=== PATIENT | female | born 1980 | race Two or more races ===

== ENCOUNTER 2016-12-13 14:02 | Emergency (ER) | payer MEDICAID, OTHER ==
[~2016-12-13] VITALS: Ht 149.9 cm; Wt 41.3 kg
[2016-12-13 14:10] VITALS: BP 115/70
[2016-12-13 14:49] LABS: Basophils # (auto) 0 uL; Basophils % (auto) 0.4 % (0.0-2.0); CONDITION Y; DEFINITIVE SEE PRINTOUT; Eosinophils # (auto) 0 uL; Eosinophils % (auto) 0.3 % (0.0-7.0); Hematocrit 36.1 % (36.0-46.0); Hemoglobin 11.6 g/dL (12.2-16.2); Lymphocytes # (auto) 1.3 uL; Lymphocytes % (auto) 17.6 % (10.0-50.0); Mean Corpuscular Hemoglobin 21.7 pg (28.0-32.0); Mean Corpuscular Hgb Conc. 32.3 g/dL (32.0-36.0); Mean Corpuscular Volume 67.4 fL (80.0-100.0); Mean Platelet Volume 12.8 fL (7.4-10.4); Monocytes # (auto) 0.9 uL; Monocytes % (auto) 11.9 % (0.0-12.0); Neutrophils # (auto) 5.1 uL; Neutrophils % (auto) 69.8 % (37.0-80.0); Platelet Count (auto) 201 10^3/uL (140-450); Red Cell Distribution Width 16.5 % (11.6-16.0); SUSPECT SEE PRINTOUT; White Blood Cell 7.4 10^3/uL (4.4-10.8)
[2016-12-13 15:03] LABS: Alkaline Phosphatase 30 U/L (45-117); Anion Gap 7 (5-15); Aspartate Aminotransferase 10 U/L (15-37); BUN/Creatinine Ratio 12.5; Bilirubin, Total 0.8 mg/dL (0.2-1.0); Blood Urea Nitrogen 10 mg/dL (7-18); Calcium 8.9 mg/dL (8.5-10.1); Carbon Dioxide 24 mmol/L (21-32); Chloride 108 mmol/L (98-107); GFR African American 104 mL/min; GFR Non-African American 86 mL/min; Glucose 90 mg/dL (74-106); Magnesium 2.5 mg/dL (1.6-2.6); Potassium 3.8 mmol/L (3.5-5.1); Sodium 139 mmol/L (136-145); Total Protein 8.1 g/dL (6.4-8.2)
== END 2016-12-13 17:43 | disposition home or self-care (01) ==
LOC: ER 14:02
DX: S40.022A Contusion of left upper arm, initial encounter (principal); X58.XXXA Exposure to other specified factors, initial encounter; Y93.89 Activity, other specified; Y92.89 Other specified places as the place of occurrence of the external cause; Y99.8 Other external cause status
CPT/HCPCS: 36415; 71020; 80053; 81025; 83735; 84484; 85025; 93005; 93971; 94761

== ENCOUNTER 2017-11-10 16:13 | Inpatient (IN) | payer MEDICAID ==
[~2017-11-10] VITALS: Ht 149.9 cm; Wt 42.0 kg
[2017-11-10] MEDS ORDERED: SODIUM CHLORIDE 0.9% 1,000 ML IVB ONE (16:54)
[2017-11-10 16:58] LABS: Basophils # (auto) 0 uL; Basophils % (auto) 0.5 % (0.0-2.0); Eosinophils # (auto) 0 uL; Eosinophils % (auto) 0.8 % (0.0-7.0); Hematocrit 34.1 % (36.0-46.0); Hemoglobin 10.9 g/dL (12.2-16.2); Lymphocytes % (auto) 17.7 % (10.0-50.0); Mean Corpuscular Hemoglobin 22.2 pg (28.0-32.0); Mean Corpuscular Hgb Conc. 32.1 g/dL (32.0-36.0); Mean Corpuscular Volume 69.1 fL (80.0-100.0); Monocytes # (auto) 0.7 uL; Monocytes % (auto) 13.6 % (0.0-12.0); Neutrophils # (auto) 3.7 uL; Neutrophils % (auto) 67.4 % (37.0-80.0); Nucleated Red Blood Cells % 0.2 %; Platelet Count (auto) 120 10^3/uL (140-450); Red Blood Cells 4.94 10^6/uL (4.0-5.20); Red Cell Distribution Width 17.3 % (11.8-14.3); White Blood Cell 5.5 10^3/uL (4.4-10.8)
[2017-11-10] MEDS ORDERED: KETOROLAC TROMETH 30 MG/ML 1ML VIAL IV ONE (17:00)
[2017-11-10 17:16] LABS: Albumin 4.1 g/dL (3.4-5.0); BUN/Creatinine Ratio 16.7; Bilirubin, Total 0.6 mg/dL (0.2-1.0); Calcium 8.9 mg/dL (8.5-10.1); Potassium 3.7 mmol/L (3.5-5.1); Total Protein 8.2 g/dL (6.4-8.2)
[2017-11-10 17:29] LABS: Magnesium 2.4 mg/dL (1.6-2.6)
[2017-11-10 17:45] LABS: Urine Bacteria FEW /hpf (None Seen); Urine Blood Negative /uL (Negative); Urine Specific Gravity 1.004 (1.001-1.035); Urine WBC <1 /hpf (0 - 5)
[2017-11-10] MEDS ORDERED: ONDANSETRON HCL 4 MG/2 ML VIAL IV ONE (21:00)
[2017-11-10] MEDS ORDERED: ONDANSETRON HCL 4 MG/2 ML VIAL IV PRN (21:00)
[2017-11-10] MEDS ORDERED: MORPHINE SULFATE 8mg/ml INJ SDV IV ONE (21:00)
[2017-11-10] MEDS ORDERED: DOCUSATE SOD 100 MG CAP PO PRN (21:00)
[2017-11-10] MEDS ORDERED: TEMAZEPAM 15 MG CAP PO PRN (21:00)
[2017-11-10] MEDS ORDERED: MORPHINE SULFATE 10 MG/ML INJ 1ML SDV IV PRN (21:00)
[2017-11-10] MEDS ORDERED: ACETAMINOPHEN 325 MG TAB PO PRN (21:00)
[2017-11-10] MEDS: SODIUM CHLORIDE 0.9% 1,000 ML IV SCH ×6 (21:04→22:38)
[2017-11-10] MEDS: FAMOTIDINE 20 MG TAB PO SCH (21:08)
[2017-11-10 22:30] VITALS: BP 121/65
[2017-11-10 22:40] VITALS: BP 121/65
[2017-11-10] MEDS ORDERED: IBUP100S11 PO (22:45)
[2017-11-11 05:00] VITALS: BP 117/64
[2017-11-11 07:09] LABS: Basophils # (auto) 0 uL; Eosinophils # (auto) 0 uL; Eosinophils % (auto) 1.5 % (0.0-7.0); Monocytes # (auto) 0.5 uL; Nucleated Red Blood Cells % 0.1 %
[2017-11-11 07:12] LABS: Basophils % (auto) 0.6 % (0.0-2.0); Hematocrit 30.5 % (36.0-46.0); Hemoglobin 9.9 g/dL (12.2-16.2); Lymphocytes # (auto) 0.7 uL; Lymphocytes % (auto) 24.8 % (10.0-50.0); Mean Corpuscular Hemoglobin 22.1 pg (28.0-32.0); Mean Corpuscular Hgb Conc. 32.3 g/dL (32.0-36.0); Mean Corpuscular Volume 68.5 fL (80.0-100.0); Monocytes % (auto) 17.6 % (0.0-12.0); Neutrophils # (auto) 1.7 uL; Neutrophils % (auto) 55.5 % (37.0-80.0); Platelet Count (auto) 81 10^3/uL (140-450); Red Blood Cells 4.45 10^6/uL (4.0-5.20); Red Cell Distribution Width 17.5 % (11.8-14.3)
[2017-11-11 07:29] LABS: Potassium 4.1 mmol/L (3.5-5.1)
[2017-11-11 07:36] LABS: Albumin 3.3 g/dL (3.4-5.0); BUN/Creatinine Ratio 16.7; Calcium 8.3 mg/dL (8.5-10.1); Total Protein 6.9 g/dL (6.4-8.2)
[2017-11-11 07:44] LABS: Bilirubin, Total 0.7 mg/dL (0.2-1.0)
[2017-11-11 09:00] VITALS: BP 96/56
[2017-11-11] MEDS: HYDROcodone-ACET 5/325MG TAB PO PRN ×2 (10:15→16:00)
[2017-11-11] MEDS: FAMOTIDINE 20 MG TAB PO SCH ×2 (11:03→21:43)
[2017-11-11] MEDS: ENOXAPARIN SOD 30 MG/0.3 ML SYRINGE SC SCH (11:04)
[2017-11-11] MEDS ORDERED: GASTROGRAFIN 120 ML SOL ONE (11:47)
[2017-11-11 12:27] VITALS: BP 107/54
[2017-11-11 12:38] LABS: INR 1.05 (0.9-1.15); Partial Thromboplastin Time 34.7 sec (23.78-33.04); Prothrombin Time 11.2 sec (9.27-12.13)
[2017-11-11 16:23] VITALS: BP 108/66
[2017-11-11] MEDS: SODIUM CHLORIDE 0.9% 1,000 ML IV SCH (20:58)
[2017-11-11 21:08] VITALS: BP 117/68
[2017-11-12 05:35] VITALS: BP 95/57
[2017-11-12] MEDS: FAMOTIDINE 20 MG TAB PO SCH (08:11)
[2017-11-12] MEDS: HYDROcodone-ACET 5/325MG TAB PO PRN (08:13)
[2017-11-12 09:00] VITALS: BP 116/60
[2017-11-12] MEDS ORDERED: IBUPROFEN 600 MG TAB PO PRN (10:00)
[2017-11-12] MEDS: ENOXAPARIN SOD 30 MG/0.3 ML SYRINGE SC SCH (10:00)
[2017-11-12 13:25] VITALS: BP 108/58
== END 2017-11-12 14:00 | disposition home or self-care (01) | DRG 247 ==
LOC: ER 16:13 → OVERFLOW 16:14 → EAST 23:16
PROVIDERS: ADMIT Nurse Practitioner; ATTEND Internal Medicine
DX: K56.41 Fecal impaction (principal); R64 Cachexia; D72.829 Elevated white blood cell count, unspecified
CPT/HCPCS: 36415; 74176; 74250; 80053; 81001; 81025; 83690; 83735; 85025; 85610; 85730; 86850; 86900; 86901; 94761; 96361; 96374; 96375; J1885; J2270; J2405